=== PATIENT | female | born 1960 | race Caucasian/White ===

== ENCOUNTER → 2021-08-09 | Outpatient (CLI) | payer BC | END | disposition home or self-care (01) | LOC: LABPAT 07:34 | PROVIDERS: ATTEND Internal Medicine Clinical Cardiac Electrophysiology | DX: U07.1 COVID-19 (principal) | CPT/HCPCS: U0003; C9803 ==

== ENCOUNTER 2021-08-12 12:30 | Day surgery (SDC) | payer BC ==
[2021-08-10 12:18] VITALS: BMI 19.8
[~2021-08-12 12:30] MED LIST: SODIUM CHLORIDE 0.9% 1,000 ML IV SCH
[2021-08-12] MEDS ORDERED: SODIUM CHLORIDE 0.9% 500 ML 500 ML IV ONE (12:56)
[2021-08-12 12:59] VITALS: RESP 16; TEMP 98.5
[2021-08-12 14:50] VITALS: BP 172/82; PULSE 87
--- NOTE | 2021-08-12 17:03 | P.EPPROC ---
- EP Procedure Note Electrophysiology Procedure Note: Diagnosis Recurrent presyncope Twelve-lead EKG shows Sinus rhythm normal MI narrow QRS normal ST segments normal QT interval Left atrial enlargement Tilt table test per protocol Baseline blood pressure 167/89 mmHg heart rate 67 beats a minute Patient was tilted upright at an angle of 70 per protocol she complained of dizziness when he stood up and a dull headache Her blood pressure remained elevated throughout the study Heart rates are stable No evidence for neuro cardiac syncope No evidence for dysautonomia Impression Hypertension No evidence for neurocardiogenic syncope or dysautonomia Twelve-lead EKG shows left atrial enlargement Plan Increase lisinopril to 10 mg by mouth twice a day Low salt diet
== END 2021-08-12 14:49 | disposition home or self-care (01) ==
LOC: CATHEP 12:30
PROVIDERS: ATTEND Internal Medicine Clinical Cardiac Electrophysiology
DX: R55 Syncope and collapse (principal); A04.72 Enterocolitis due to Clostridium difficile, not specified as recurrent; E55.9 Vitamin D deficiency, unspecified; G47.00 Insomnia, unspecified; Z87.440 Personal history of urinary (tract) infections; Z82.49 Family history of ischemic heart disease and other diseases of the circulatory system; Z83.438 Family history of other disorder of lipoprotein metabolism and other lipidemia; Z83.71 Family history of colonic polyps; Z79.899 Other long term (current) drug therapy; K52.89 Other specified noninfective gastroenteritis and colitis; Z88.6 Allergy status to analgesic agent; Z88.1 Allergy status to other antibiotic agents; Z88.5 Allergy status to narcotic agent; Z88.0 Allergy status to penicillin
CPT/HCPCS: 93660

== ENCOUNTER → 2022-07-26 | Outpatient (CLI) | payer BC ==
--- NOTE | 2022-07-27 08:51 | MM ---
Reason for Exam: Screening (asymptomatic). Last mammogram was performed 10 year(s) and 11 month(s) ago. Patient History: Menarche at age 14. Patient has no children. Left ovary removed at age 27. Right ovary removed at age 27. Hysterectomy at age 27. Postmenopausal. Currently using Estrogen, starting at age 59. Patient used Estrogen and Progesterone for 10 years. Paternal aunt had breast cancer. Risk Values: Trayc 5 year model risk: 1.5%. NCI Lifetime model risk: 7.0%. Prior Study Comparison: 08/03/2009 Screening Mammogram, [facility]. 09/09/2010 Screening Mammogram, [facility]. 09/13/2011 Bilateral Screening Mammogram, [facility]. Tissue Density: The breast tissue is heterogeneously dense. This may lower the sensitivity of mammography. Findings: Analyzed By CAD. There is no suspicious group of microcalcifications or new suspicious mass in either breast. Overall Assessment: Negative, BI-RAD 1 Management: Screening Mammogram of both breasts in 1 year. A clinical breast exam by your physician is recommended on an annual basis and results should be correlated with mammographic findings. [facility] will attempt to contact patient to return for supplemental views and ultrasound if indicated. Electronically signed and approved by: Ulises Roberts DO
== END | disposition home or self-care (01) ==
LOC: RADMAMWWP 07:14
PROVIDERS: ATTEND Obstetrics & Gynecology
DX: Z12.31 Encounter for screening mammogram for malignant neoplasm of breast (principal); Z78.0 Asymptomatic menopausal state; Z80.3 Family history of malignant neoplasm of breast
CPT/HCPCS: 77063; 77067

== ENCOUNTER → 2024-06-10 | Outpatient (CLI) | payer BC ==
--- NOTE | 2024-06-10 08:44 | CT ---
EXAMINATION TYPE: CT abdomen pelvis w con CT DLP: 379.10 mGycm, Automated exposure control for dose reduction was used. DATE OF EXAM: 06/10/2024 7:56 AM COMPARISON: None CLINICAL INDICATION:Female, 63 years old with history of R10.30 lower abdominal pain; Lower abdominal pain, bowel issues. TECHNIQUE: Standard CT of the abdomen and pelvis following the administration of 100 cc of Isovue 3 00 IV contrast material and oral contrast. Coronal and sagittal reformats were performed. FINDINGS: LOWER CHEST: Unremarkable ABDOMEN LIVER: Unremarkable GALLBLADDER AND BILE DUCTS: Unremarkable. PANCREAS: Unremarkable. SPLEEN: Unremarkable. ADRENAL GLANDS: Unremarkable. KIDNEYS AND URETERS: No evidence of hydronephrosis or renal calculus. The kidneys enhance symmetrical ly. Contrast is demonstrated within both collecting systems. Bilateral prominent extrarenal pelvises. PELVIS BLADDER: Unremarkable REPRODUCTIVE: The uterus is surgically absent. ABDOMEN & PELVIS STOMACH AND BOWEL: Stomach and duodenum are unremarkable. Enteric contrast is reaches the transverse colon. Mild colonic stool burden. The appendix is not identified however no significant inflammatory changes within the right upper quadrant. No focal bowel wall thickening or surrounding inflammatory c hanges. No evidence of bowel obstruction. PERITONEUM: No evidence of pneumoperitoneum or free fluid. VASCULATURE: No evidence of aortic aneurysm. MUSCULOSKELETAL: No acute osseous abnormalities. Degenerative disc disease of the lower lumbar spine. Most pronounced at L4-L5. LYMPH NODES: No gross evidence for lymphadenopathy. SOFT TISSUE/ABDOMINAL WALL: Unremarkable IMPRESSION: No CT evidence for an acute abdominal/pelvic process. [facility], , 06/10/2024 8:42 AM
== END | disposition home or self-care (01) ==
LOC: RADCTMAIN 06:11
PROVIDERS: ATTEND Internal Medicine Gastroenterology
DX: R10.30 Lower abdominal pain, unspecified (principal)
CPT/HCPCS: 74177

== ENCOUNTER → 2025-02-28 | Outpatient (CLI) | payer BC, MEDICARE ==
--- NOTE | 2025-03-03 07:44 | MM ---
Reason for Exam: Screening (asymptomatic). Last mammogram was performed 2 year(s) and 7 month(s) ago. Patient History: Menarche at age 14. Patient has no children. Left ovary removed at age 27. Right ovary removed at age 27. Hysterectomy at age 27. Postmenopausal. Currently using Estrogen, starting at age 59. Patient used Estrogen and Progesterone for 10 years. Paternal aunt had breast cancer. Risk Values: Tracy 5 year model risk: 1.7%. NCI Lifetime model risk: 6.3%. Prior Study Comparison: 09/09/2010 Screening Mammogram, [facility] . 09/13/2011 Bilateral Screening Mammogram, [facility]. 07/26/2022 Bilateral MG 3D screening mammo w/cad, [facility]. Tissue Density: The breasts are heterogeneously dense, which may obscure small masses. Findings: Analyzed By CAD. There is no suspicious group of microcalcifications or new suspicious mass in either breast. Overall Assessment: Negative, BI-RAD 1 Management: Screening Mammogram of both breasts in 1 year. . Patient should continue monthly self-breast exams. A clinical breast exam by your physician is recommended on an annual basis. This exam should not preclude additional follow-up of suspicious palpable abnormalities. Note on Tracy scores and lifetime risk: 1. A Tracy score greater than 3% is considered moderate risk. If this is the case, consider specialist referral to assess eligibility for a risk reducing agent. 2. If overall lifetime risk for the development of breast cancer is 20% or higher, the patient may qualify for future screening with alternating mammogram and breast MRI. [facility], , 03/03/2025 7:41 AM. Electronically signed and approved by: Gary Perry M.D. Radiologis
--- NOTE | 2025-03-03 13:24 | BD ---
EXAMINATION TYPE: Axial Bone Density DATE OF EXAM: 02/28/2025 CLINICAL HISTORY: 64 years old Female. ICD-10 CODE: N95.1 BD , Additional History: Height: 59.5 in Weight: 106 lbs FRAX RISK QUESTIONS: History of Fracture in Adulthood: lt wrist age 57 Secondary Osteoporosis: 3. Menopause before 45: total hysterectomy age 27 HISTORY OF: History of Wrist Fracture: lt wrist age 57 EXAM MEASUREMENTS: Bone mineral densitometry was performed using the [employer]. Bone mineral density as measured about the Lumbar spine is: ----- L1-L4(G/cm2): 0.990 T Score Values are as follows: ----- L1: -2.2 ----- L2: -2.0 ----- L3: -1.5 ----- L4: -1.2 ----- L1-L4: -1.6 Z Score Values are as follows: ----- L1: 0.0 ----- L2: 0.2 ----- L3: 0.7 ----- L4: 1.0 ----- L1-L4: 0.6 Bone mineral density baseline Bone mineral density about the R hip (g/cm2): 0.766 Bone mineral density about the L hip (g/cm2): 0.797 T Score values are as follows: -----R Neck: -1.9 -----L Neck: -2.1 -----R Total: -1.9 -----L Total: -1.7 Z Score values are as follows: -----R Neck: -0.1 -----L Neck: -0.3 -----R Total: -0.3 -----L Total: -0.1 Bone mineral density baseline FRAX%s: The graph provided illustrates a 16.9% chance for a major osteoporotic fx and a 3.1% chance f or the hips probability for fx in 10 years time. IMPRESSION: Osteopenia (T Score between -2.5 and -1). There is slightly increased risk of fracture and the patient may be considered for treatment. Re-Screen 2-5 years. NOTE: T-SCORE=SD OF THE YOUNG ADULT MEAN. [facility]: [id number], 03/03/2025 1:22 PM
== END | disposition home or self-care (01) ==
LOC: RADMAMWWP 15:44
PROVIDERS: ATTEND Obstetrics & Gynecology
DX: Z12.31 Encounter for screening mammogram for malignant neoplasm of breast (principal); R92.333 Mammographic heterogeneous density, bilateral breasts; M85.89 Other specified disorders of bone density and structure, multiple sites; Z78.0 Asymptomatic menopausal state; Z80.3 Family history of malignant neoplasm of breast
CPT/HCPCS: 77063; 77067; 77080